=== PATIENT | male | born 1945 | race Caucasian/White ===

== ENCOUNTER 2017-02-05 23:02 | Observation (INO) | payer MEDICARE, OTHER ==
--- NOTE | ~2017-02-05 | HP ---
History And Physical [address] [place] [address] NAME: ISELA BRYANT : 43 STATUS : ADM Mason PAT#: [id number] AGE: 71 ADM/REG DATE : 02/05/17 MR#: [id number] REPORT SERV DATE: 02/06/17 DICTATED BY: LIEN ETIENNE DATE: 02/06/17 REPORT STATUS : Draft TRANSCRIBED BY: ALISHA DATE: 02/06/17 DATE OF ADMISSION: 02/05/2017 SENIOR RECEPTIONIST: Jose Daniel Masterson M.D. CHIEF COMPLAINT: Chest pain similar to previous. HISTORY OF PRESENT ILLNESS: A very pleasant 71-year-old white gentleman with known history of CAD status post CABG x3 with vein graft to LAD, ramus intermedius, and PDA [place] [address] Freedman. The patient states that on 02/05/2017 around 2030 hours, he experienced "severe chest pain" that radiated to his left axilla, and down to his left arm. He initially thought it was indigestion. He tried three Tums with no improvement in his symptoms. He feels these symptoms were somewhat similar to his previous cardiac event. He denies any shortness of breath, nausea, diaphoresis, dizziness, or belching with the episode. He states he had left over roast for dinner that night. At its most intense, he rates the chest pain a 10/10. At the time of interview at [facility], he is pain free. He states the episode lasted several minutes in duration. He and his did call EMS, nitroglycerin was provided by the EMS, and in the emergency room with resolution of his symptoms. The patient self reports a history of four heart attacks prior to his bypass and occurring after his prostatectomy. Denies history of stroke, DVT, or pulmonary embolus. The patient denies any recent fever or chills, no palpitations, no syncopal episodes. Denies PND or orthopnea. PAST MEDICAL HISTORY: 1. CAD. a. Self reports NE x4. b. CABG x3 [place] [address] Freedman as above. 2. Hypertension. 3. Dyslipidemia. 4. Denies diabetes. 5. History of prostate cancer status post radical prostatectomy. 6. RLS. 7. Remote tobacco abuse. PAST SURGICAL HISTORY: 1. CABG x3 in 2006. 2. Prostatectomy. 3. Nasal surgery. 4. Right cataract repair. SOCIAL HISTORY: He is . He has four children. He is a retired [employer] and from the [employer]. Walks three to four times weekly, most recently one week ago for 30 to 45 minutes without incident. Quit smoking in 1974. Quit drinking in 1982. Denies illicits. FAMILY HISTORY: Father with three strokes, at the age of 77. Mother at 66 of History And Physical [address] [address] NAME: ISELA BRYANT : 43 STATUS : ADM Mason PAT#: [id number] AGE: 71 ADM/REG DATE : 02/05/17 MR#: [id number] REPORT SERV DATE: 02/06/17 DICTATED BY: LIEN ETIENNE DATE: 02/06/17 REPORT STATUS : Draft TRANSCRIBED BY: ALISHA DATE: 02/06/17 cancer. Brother at 54 of a brain tumor. Sister at 48 of cancer. REVIEW OF SYSTEMS: A 14-point review of systems was performed, significant for HPI. No other contributory diagnoses identified. ALLERGIES: GLUTEN AND WEED INTOLERANCE, CELIAC DISEASE. HOME MEDICATIONS: ProAir p.r.n., Norvasc 5 mg nightly, aspirin 81 mg nightly, baclofen 30 mg nightly p.r.n., hydrochlorothiazide 12.5 mg daily, lisinopril 20 mg twice daily, Mobic 7.5 daily, Toprol-XL 100 mg nightly, multivitamin daily, AcipHex 20 mg daily, and Crestor 40 mg nightly. PHYSICAL EXAMINATION: BLOOD PRESSURE: 141/81, PULSE: 60, RESPIRATORY RATE: 18, TEMPERATURE: 97.5, and O2 saturation 95% on room air. HEIGHT: 5 feet 7 inches, WEIGHT: 230 pounds. BMI of 36. GENERAL: Cooperative, in no apparent distress. HEENT: Pupils 2 mm, sclera nonicteric. Nares patent. Moist mucous membranes. No xanthelasma. NECK: Trachea midline, no thyromegaly. No JVD. No bruits. LYMPH: No cervical lymphadenopathy. No supraclavicular lymphadenopathy. RESPIRATORY: Unlabored respirations. Breath sounds clear bilaterally to posterior auscultation. No wheezes or rhonchi. CARDIOVASCULAR: Regular rate. No murmur, rub or gallop appreciated. EXTREMITIES: Without edema. Pulses 2+ bilaterally. ABDOMEN: Obese. SKIN: Warm, dry extremities. No pallor, or cyanosis. PSYCHIATRIC: Appropriate affect. Alert, oriented x3. LABORATORY DATA: Troponin is less than 0.02 twice. Potassium 3.7, BUN 16, creatinine 1.21, glucose 108, and magnesium 2.2. WBC of 8.0, hemoglobin 13.6, hematocrit 40.4, and platelet count of 243,000. EKG, sinus bradycardia and sinus rhythm. MPI, 2013: Eloy stage 4, 10 minutes, 13 METS. EKG changes suggestive of ischemia, but no chest pain. No ischemia on imaging. ASSESSMENT/PLAN: 1. Substernal chest pain similar to previous cardiac event. The patient has been observed in the CPOU overnight to rule out myocardial infarction with two sets of cardiac markers negative. EKG appears stable. The patient has been held n.p.o. We will proceed with MPI today. The patient will be discharged home if low risk, no ischemia. If anything suggestive of ischemia, Cardiology referral will be initiated. Otherwise, the patient will be asked to follow up with his PCP and Dr. Masterson as appropriate. 2. Coronary artery disease. Continue home medications. 3. Hypertension, well-controlled. Continue home medications. 4. Dyslipidemia. Continue statin. 5. No nitroglycerin is available. Script was provided at discharge. Education on use and History And Physical [address] [address] NAME: ISELA BRYANT : 43 STATUS : ADM Mason PAT#: [id number] AGE: 71 ADM/REG DATE : 02/05/17 MR#: [id number] REPORT SERV DATE: 02/06/17 DICTATED BY: LIEN ETIENNE DATE: 02/06/17 REPORT STATUS : Draft TRANSCRIBED BY: ALISHA DATE: 02/06/17 storage was provided at bedside. FLORA/ALISHA Lien Etienne, MSN, [employer]MING MACHINE [employer] / [id number] CC: Lien Etienne, MSN, [employer]MING MACHINE [employer] Shweta Barron M.D. Jose Daniel Masterson M.D.
[~2017-02-05 23:02] MED LIST: ACIPHEX PO; ASAB PO; FISH-EPA1000 MG PO; LIPITOR80 MG PO; MULTIVITAMI1 PO; NIACOR500 MG PO; PRIN10 PO; PROTONIX PO; TOPXL50 PO; TYLENOL ARTH650 MG PO
[2017-02-05 23:50] LABS: BASOPHILS 0.4 %; BASOPHILS ABSOLUTE 0.03 10/3/uL (0.0-0.16); EOSINOPHILS 3.3 %; EOSINOPHILS ABSOLUTE 0.26 10/3/uL (0.0-0.53); HEMATOCRIT 40.4 % (40.0-51.0); HEMOGLOBIN 13.6 g/dL (13.6-17.8); IMMATURE GRANULOCYTES 0.4 %; IMMATURE GRANULOCYTES ABSOLUTE 0.03 10/3/uL (0.0-0.11); LYMPHOCYTES 39.7 %; LYMPHOCYTES ABSOLUTE 3.16 10/3/uL (0.67-4.30); MEAN CORPUS HGB CONC 33.7 g/dL (32.0-36.0); MEAN CORPUSCULAR HEMOGLOB 28.9 pg (26.0-34.0); MEAN PLATELET VOLUME 8.7 fL (9.2-13.0); MONOCYTES 6.8 %; MONOCYTES ABSOLUTE 0.54 10/3/uL (0.21-1.20); NEUTROPHILS 49.4 %; NEUTROPHILS ABSOLUTE 3.94 10/3/uL (2.02-8.40); PLATELET COUNT 243 10/3/uL (150-400); RBC DISTRIBUTION WIDTH 13.6 % (12.0-16.0)
[2017-02-05 23:51] LABS: MANUAL DIFF NO %
[2017-02-05 23:59] LABS: INTERNATIONAL NORMAL RATI 1.1 UNITS (-); PARTIAL THROMBO TIME 28.1 SEC (22.5-37.2); PROTIME (NOT ORD) 14.3 SEC (12.0-14.5)
[2017-02-06 00:11] LABS: BUN (BLOOD UREA NITROGEN) 16 MG/DL (6-23); CHEST PAIN PROFILE TAT 0 Hrs 27 Mins; CHLORIDE, SERUM 103 MMOL/L (96-112); CO2 (CARBON DIOXIDE) 27 MMOL/L (24-34); CREATININE 1.21 MG/DL (0.70-1.30); GFR AFRICAN AMERICAN 69 ML/MIN (>=60); GFR NON AFRICAN AMERICAN 59 ML/MIN (>=60); GLUCOSE, SERUM 108 MG/DL (60-99); POTASSIUM, SERUM 3.7 MMOL/L (3.5-5.3); SODIUM, SERUM 140 MMOL/L (135-148); TROPONIN I <0.02 NG/ML (<0.05)
[2017-02-06 00:12] LABS: CALCIUM, SERUM 8.2 MG/DL (8.5-10.4)
[2017-02-06] MEDS ORDERED: NORV5 PO (01:20)
[2017-02-06] MEDS ORDERED: MOBIC7.5 PO (01:20)
[2017-02-06] MEDS ORDERED: LIOR10 PO (01:21)
[2017-02-06] MEDS ORDERED: MICROZIDE PO (01:21)
[2017-02-06] MEDS ORDERED: ACIPHEX PO (01:22)
[2017-02-06] MEDS ORDERED: CRESTOR40 MG PO (01:22)
[2017-02-06] MEDS ORDERED: PRIN20 PO (01:22)
[2017-02-06] MEDS ORDERED: TOPXL100 PO (01:22)
[2017-02-06] MEDS ORDERED: PROAIR HFA INH (01:23)
[2017-02-06] MEDS ORDERED: MULTIVIT/MIN PO (01:23)
[2017-02-06] MEDS ORDERED: ASAB PO (01:23)
[2017-02-06] MEDS ORDERED: NITROSTAT0.4 MG SL (08:50)
== END 2017-02-06 12:48 | disposition home or self-care (01) ==
LOC: ER 23:02 → CDU1 23:59
PROVIDERS: Specialist
DX: R07.2 Precordial pain (principal); I25.10 Atherosclerotic heart disease of native coronary artery without angina pectoris; I10 Essential (primary) hypertension; E78.5 Hyperlipidemia, unspecified; K21.9 Gastro-esophageal reflux disease without esophagitis; G25.81 Restless legs syndrome; M19.90 Unspecified osteoarthritis, unspecified site; Z87.891 Personal history of nicotine dependence; Z95.1 Presence of aortocoronary bypass graft; Z85.46 Personal history of malignant neoplasm of prostate; Z98.41 Cataract extraction status, right eye; Z98.890 Other specified postprocedural states; Z82.3 Family history of stroke; Z88.8 Allergy status to other drugs, medicaments and biological substances; Z79.82 Long term (current) use of aspirin; Z79.899 Other long term (current) drug therapy
CPT/HCPCS: 71010; 78452; 80048; 83735; 84484; 85025; 85610; 85730; 93005; 93017; 99285; A9270-GY; A9502; G0378